=== PATIENT | female | born 1970 | race Caucasian/White ===

== ENCOUNTER 2019-10-31 11:12 | Emergency (ER) | payer BC ==
--- NOTE | 2019-10-31 12:00 | RAD ---
Radiograph right humerus 2 views: DATE: 10/31/2019 Time: 11:27 AM HISTORY: 49-year-old female with acute traumatic right arm pain due to fall. FINDINGS: Vertically oriented thin linear lucency separates posterior portion of greater tuberosity from the re st of the humerus by a slight amount. No fracture visualized in the rest of the humerus including diaphysis. IMPRESSION: Suspicious for minimally displaced acute fracture of portion of greater tuberosity of humeral head. R ecommend correlation with site of maximal point tenderness.
[2019-10-31] MEDS ORDERED: HYDROcodone/Acetaminophen 10/325 mg Tablet ONE (12:04)
== END 2019-10-31 12:23 | disposition home or self-care (01) ==
LOC: ERS 11:12
DX: S40.011A Contusion of right shoulder, initial encounter (principal); W22.8XXA Striking against or struck by other objects, initial encounter

== ENCOUNTER 2022-12-29 11:08 | Outpatient (CLI) | payer OTHER | END 2022-12-29 11:09 | disposition home or self-care (01) | LOC: BICMAMMO 11:08 | PROVIDERS: ATTEND Family Medicine | DX: Z12.31 Encounter for screening mammogram for malignant neoplasm of breast (principal) | CPT/HCPCS: 77063; 77067 ==